=== PATIENT | female | born 1995 | race Caucasian/White ===

== ENCOUNTER 2019-08-27 20:14 | Emergency (ER) | payer MEDICARE, OTHER ==
[~2019-08-27] VITALS: Ht 157.5 cm; Wt 81.5 kg
--- NOTE | 2019-08-27 20:51 | NUR ---
URINE SENT TO LAB
[2019-08-27] MEDS ORDERED: ONDANSETRON ODT 4 MG ONE (21:16)
[2019-08-27] MEDS ORDERED: KETOROLAC 30 MG/1 ML ONE (21:17)
[2019-08-27 21:20] LABS: HCG UR SG 1.029 (1.003-1.030)
[2019-08-27 21:21] LABS: MICROSCOPIC INDICATED
--- NOTE | 2019-08-27 21:23 | NUR ---
pt medicated per order. no other wants or needs expressed at this time.
[2019-08-27] MEDS ORDERED: KETOROLAC 30 MG/1 ML IM ONE (21:30)
[2019-08-27] MEDS ORDERED: ONDANSETRON ODT 4 MG PO ONE (21:30)
[2019-08-27 21:41] LABS: BASOPHILS # (AUTO) 0.11 x10^3/uL (0-0.1); BASOPHILS % (AUTO) 2 % (0-1); EOSINOPHILS % (AUTO) 1 % (1-7); LYMPHOCYTES # (AUTO) 1.44 x10^3/uL (1-3.4); LYMPHOCYTES % (AUTO) 19 % (22-44); MD NO; MEAN CORPUSCULAR HEMOGLOBIN 32.5 pg (27.0-34.8); MEAN PLATELET VOLUME 8.2 fL (7.4-10.4); MONOCYTES # (AUTO) 0.66 x10^3/uL (0.2-0.8); MONOCYTES % (AUTO) 9 % (2-9); NEUTROPHILS # (AUTO) 5.34 x10^3/uL (1.8-6.8); NEUTROPHILS % (AUTO) 70 % (42-75); PLATELET COUNT 308 x10^3/uL (130-400); RED BLOOD COUNT 4.46 x10^6/uL (3.82-5.3); RED CELL DISTRIBUTION WIDTH 12.5 % (9.6-15.2)
[2019-08-27 21:51] LABS: ANION GAP 6 mmol/L (5-15); CALCIUM 8.8 mg/dL (8.5-10.1); CHLORIDE 107 mmol/L (98-107)
[2019-08-27 21:54] LABS: ALANINE AMINOTRANSFERASE 19 U/L (12-78); ALKALINE PHOSPHATASE 85 U/L (45-117); BILIRUBIN,TOTAL 0.6 mg/dL (0.2-1.0); CREATININE 0.85 mg/dL (0.55-1.02); TOTAL PROTEIN 7.5 g/dL (6.4-8.2)
[2019-08-27] MEDS ORDERED: ONDANSETRON 2MG/ML, 2ML IVPush ONE (22:30)
[2019-08-27] MEDS ORDERED: MORPHINE SULFATE 4 MG/ML, 1ML IVPush ONE (22:30)
[2019-08-27] MEDS ORDERED: ONDANSETRON 2MG/ML, 2ML ONE (22:42)
[2019-08-27] MEDS ORDERED: MORPHINE SULFATE 4 MG/ML, 1ML ONE (22:42)
--- NOTE | 2019-08-28 00:24 | NUR ---
Report received from HARINI Harrington. This RN to assume care. Patient to be discharged.
[2019-08-28 00:37] VITALS: BP 97/43
== END 2019-08-28 01:06 | disposition home or self-care (01) ==
LOC: ED 08-28 00:30
DX: N93.8 Other specified abnormal uterine and vaginal bleeding (principal); N39.0 Urinary tract infection, site not specified
CPT/HCPCS: 36415; 74176; 76830; 80053; 81001; 81025; 85025; 87077; 87086; 87186; 96372; 96374; 96375; 99285; J1885; J2270; J2405; Q0162

== ENCOUNTER 2019-11-05 19:31 | Emergency (ER) | payer MEDICARE, OTHER ==
[~2019-11-05] VITALS: Ht 157.5 cm; Wt 84.7 kg
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
[2019-11-05] MEDS ORDERED: HYDROcodone/APAP 5/325 TABLET ONE (20:13)
[2019-11-05] MEDS ORDERED: CYCLOBENZAPRINE 10 MG TABLET ONE (20:13)
[2019-11-05] MEDS ORDERED: CYCLOBENZAPRINE 10 MG TABLET PO ONE (20:30)
[2019-11-05] MEDS ORDERED: HYDROcodone/APAP 5/325 TABLET PO PRN (20:30)
[2019-11-05] MEDS ORDERED: OXYcodone/APAP 5/325MG TABLET ONE (20:43)
[2019-11-05] MEDS ORDERED: DULO20CA45 PO (20:51)
[2019-11-05] MEDS ORDERED: LAMO100T5 PO (20:51)
[2019-11-05] MEDS ORDERED: METH2.5T PO (20:51)
[2019-11-05] MEDS ORDERED: GABA-827 PO (20:51)
[2019-11-05] MEDS ORDERED: INFL100V IV (20:51)
[2019-11-05] MEDS ORDERED: ZOLP-413 PO (20:52)
[2019-11-05] MEDS ORDERED: OXYcodone/APAP 5/325MG TABLET PO ONE (21:00)
[2019-11-05 21:19] VITALS: BP 125/57
== END 2019-11-05 21:54 | disposition home or self-care (01) ==
LOC: ED 20:00
DX: S06.0X1A Concussion with loss of consciousness of 30 minutes or less, initial encounter (principal); S16.1XXA Strain of muscle, fascia and tendon at neck level, initial encounter; S39.012A Strain of muscle, fascia and tendon of lower back, initial encounter; R94.31 Abnormal electrocardiogram [ECG] [EKG]; W19.XXXA Unspecified fall, initial encounter; Y93.89 Activity, other specified; Y92.098 Other place in other non-institutional residence as the place of occurrence of the external cause; Y99.8 Other external cause status
CPT/HCPCS: 70450; 72072; 72110; 72125; 72220; 93005; 99285

== ENCOUNTER 2020-01-02 13:40 | Emergency (ER) | payer MEDICARE, OTHER ==
[~2020-01-02] VITALS: Ht 157.5 cm; Wt 84.1 kg
[~2020-01-02 13:40] MED LIST: DULO20CA45 PO; GABA-827 PO; INFL100V IV; LAMO100T5 PO; METH2.5T PO; ZOLP-413 PO
[2020-01-02 13:44] VITALS: BP 129/83
[2020-01-02] MEDS ORDERED: HYDROcodone/APAP 5/325 TABLET ONE (14:25)
[2020-01-02] MEDS ORDERED: HYDROcodone/APAP 5/325 TABLET PO ONE (14:30)
[2020-01-02] MEDS ORDERED: OXYcodone/APAP 5/325MG TABLET PO ONE (14:30)
[2020-01-02] MEDS ORDERED: OXYcodone/APAP 5/325MG TABLET ONE (14:32)
--- NOTE | 2020-01-02 14:37 | NUR ---
TASK RN: PT MEDICATED PER EMAR FOR PAIN, 09/21. SLING APPLIED.
--- NOTE | 2020-01-02 14:52 | NUR ---
TASK RN: DC EDUCATION PROVIDED, PT DEMONSTRATES UNDERSTANDING. PT AMBULATED STEADILY TO DC W RN AND FRIEND. FRIEND TO TRANSPORT PT HOME.
== END 2020-01-02 14:54 | disposition home or self-care (01) ==
LOC: ED 14:27
DX: S40.011A Contusion of right shoulder, initial encounter (principal); R20.2 Paresthesia of skin; W18.30XA Fall on same level, unspecified, initial encounter; Y93.89 Activity, other specified; Y92.009 Unspecified place in unspecified non-institutional (private) residence as the place of occurrence of the external cause; Y99.8 Other external cause status
CPT/HCPCS: 99284

== ENCOUNTER 2020-02-04 16:43 | Emergency (ER) | payer MEDICARE, OTHER ==
[~2020-02-04] VITALS: Ht 157.5 cm; Wt 83.8 kg
[2020-02-04 17:18] LABS: HCG UR SG 1.031 (1.003-1.030)
[2020-02-04 17:25] LABS: MICROSCOPIC INDICATED
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
[2020-02-04] MEDS ORDERED: SODIUM CHLORIDE 0.9% 1,000ML IVBOLUS ONE (18:30)
[2020-02-04] MEDS ORDERED: HYDROmorphone 2 MG/ML, 1ML IVPush PRN (18:30)
[2020-02-04] MEDS ORDERED: SODIUM CHLORIDE FLUSH 10ML SYR IVF ONE (18:30)
[2020-02-04 18:44] LABS: BASOPHILS % (AUTO) 1 % (0-1); EOSINOPHILS % (AUTO) 1 % (1-7); LYMPHOCYTES % (AUTO) 20 % (22-44); MEAN CORPUSCULAR HEMOGLOBIN 32.5 pg (27.0-34.8); MEAN CORPUSCULAR HGB CONC 34.4 g/dL (32.4-35.8); MEAN PLATELET VOLUME 7.8 fL (7.4-10.4); MONOCYTES % (AUTO) 9 % (2-9); NEUTROPHILS % (AUTO) 70 % (42-75); PLATELET COUNT 320 x10^3/uL (130-400); RED BLOOD COUNT 4.28 x10^6/uL (3.82-5.3); RED CELL DISTRIBUTION WIDTH 12.2 % (9.6-15.2)
[2020-02-04 18:55] LABS: MD NO
[2020-02-04 18:56] LABS: ALANINE AMINOTRANSFERASE 27 U/L (12-78); ALBUMIN 4.2 g/dL (3.4-5.0); ANION GAP 7 mmol/L (5-15); CALCIUM 9.1 mg/dL (8.5-10.1); CHLORIDE 110 mmol/L (98-107); CREATININE 0.82 mg/dL (0.55-1.02)
[2020-02-04 19:00] LABS: ALKALINE PHOSPHATASE 88 U/L (45-117); BILIRUBIN,TOTAL 0.3 mg/dL (0.2-1.0); TOTAL PROTEIN 7.9 g/dL (6.4-8.2)
--- NOTE | 2020-02-04 19:00 | NUR ---
REPORT GIVEN TO YENY SCHULER AND BRIT SCHULER.
--- NOTE | 2020-02-04 19:00 | NUR ---
REPORT RECEIVED FROM STEF SCHULER
--- NOTE | 2020-02-04 19:20 | NUR ---
PT REQUESTING NAUSEA MEDICATION. MD AWARE
[2020-02-04] MEDS ORDERED: HYDROmorphone 1 MG/ML, 1ML INJ ONE (19:49)
[2020-02-04] MEDS ORDERED: ONDANSETRON 2MG/ML, 2ML ONE (19:49)
[2020-02-04] MEDS ORDERED: ONDANSETRON 2MG/ML, 2ML IVPush ONE (20:00)
[2020-02-04] MEDS ORDERED: OMNIPAQUE 350 MG/ML, 100ML BOTTLE ONE (20:00)
--- NOTE | 2020-02-04 20:20 | NUR ---
PT STATES NAUSEA AND PAIN IS GONE AFTER MEDICATIONS GIVEN
[2020-02-04 21:30] VITALS: BP 120/66
== END 2020-02-04 22:01 | disposition home or self-care (01) ==
LOC: ED 18:11
DX: R10.84 Generalized abdominal pain (principal); R19.7 Diarrhea, unspecified
CPT/HCPCS: 36415; 74177; 80053; 81001; 81025; 83605; 83690; 84703; 85025; 96361; 96374; 96375; 99285; J1170; J2405; J7030; Q9967